=== PATIENT | female | born 1970 | race African-American/Black ===

== ENCOUNTER 2017-08-22 14:18 | Emergency (ER) | payer BC ==
[~2017-08-22] VITALS: Ht 152.4 cm; Wt 75.0 kg
[2017-08-22 14:47] VITALS: BP 153/84
== END 2017-08-22 16:00 | disposition left against medical advice (07) ==
LOC: ER 15:55
DX: R10.30 Lower abdominal pain, unspecified (principal); Z53.21 Procedure and treatment not carried out due to patient leaving prior to being seen by health care provider